=== PATIENT | female | born 1980 | race Caucasian/White ===

== ENCOUNTER 2016-08-26 12:22 | Emergency (ER) | payer BC ==
[~2016-08-26] VITALS: Ht 157.5 cm; Wt 138.9 kg
[~2016-08-26 12:22] MED LIST: ACULAR 0.5100 DROP/5 RIGHT EYE; ANTIVERT25 MG PO; ATARAX,VISTARIL25 MG PO; AZELASTINE137 MCG/0. BOTH NARES; BENZONATATE200 MG PO; CEFDINIR300 MG PO; CIPRODEX OTIC7.5 ML LEFT EAR; DIFLUCAN150 MG PO; EFFEXOR75 MG PO; ERYTHROMYC1 APPLICAT RIGHT EYE; FLEXERIL10 MG PO; HYDROCODON-ACE1 EAC7 PO; INDOCIN25 MG PO; KEFLEX500 MG PO; LASIX20 MG PO; LEVAQUIN500 MG PO; LORTAB 5-325 M1 EACH PO; LOTENSIN10 MG PO; MELOXICAM7.5 MG PO; METFORMIN HCL500 MG PO; MOTRIN400 MG PO; MOTRIN600 MG PO; MOTRIN800 MG PO; NAPROSYN500 MG PO; NOHOMEMEDS; NORCO 7.5/321 TABLET PO; NYQUIL D COLD295 ML PO; PREDNISONE10 MG PO; PREDNISONE20 MG PO; PREVACID30 MG PO; PRISTIQ50 MG; PROAIR HFA8.5 GM IH; PROMETHAZINE HC25 M1 PO; SYNTHROID; SYNTHROID50 MCG PO; ULTRAM50 MG PO; VALIUM5 MG PO; VENTOLIN HFA18 GM IH; ZOFRAN4 MG PO; no home
[2016-08-26 13:27] LABS: HEMATOCRIT 42.5 % (36.0-46.0); MCH 28.7 PG (29.0-34.0); MCHC 34.8 G/DL (30.0-36.0); MCV 82.4 FL (83-99); MEAN PLAT.VOLUME 9.7 uM^3 (9.5-12.4); PLATELET COUNT 351 K/uL (156-360); RBC DIS.WIDTH-CV 13.9 % (11.8-14.6); RBC DIS.WIDTH-SD 40.8 % (39-53); RED BLOOD COUNT 5.16 M/uL (3.80-5.20); WHITE BLOOD COUNT 12.1 K/uL (4.1-10.2)
[2016-08-26 13:38] LABS: CHLORIDE 105 mEq/L (99-109); SODIUM 138 mEq/L (136-147)
[2016-08-26 13:41] LABS: GLUCOSE 93 mg/dL (70-99)
[2016-08-26 13:42] LABS: ANION GAP 11 MEQ/L (2-14)
[2016-08-26 13:43] LABS: TOTAL BILIRUBIN 0.2 mg/dL (0.0-1.0)
[2016-08-26 13:44] LABS: ALKALINE PHOSPHATASE 106 IU/L (3-129); GFR ESTIMATE (CALCULATED) > 59 mL/min/
[2016-08-26 13:45] LABS: UREA NITROGEN (BUN) 8 mg/dL (9-23)
[2016-08-26 13:54] LABS: QUANTITATIVE HCG < 4.0 MIU/ML
[2016-08-26] MEDS ORDERED: VALSARTAN40 MG PO (14:55)
[2016-08-26] MEDS ORDERED: ESCITALOPRAM OX20 MG PO (14:56)
[2016-08-26 15:36] LABS: LIPASE 183 U/L (1.0-51.0)
[2016-08-26 16:02] LABS: ADD MIUA? NO; BILIRUBIN NEGATIVE; BLOOD NEGATIVE; COLOR YELLOW ((YELLOW)); GLUCOSE (STRIP) NEGATIVE; KETONES NEGATIVE; LEUKOCYTES NEGATIVE; NITRITE NEGATIVE; PH, URINE 6.5 (5-8); PROTEIN (STRIP) NEGATIVE; SPECIFIC GRAVITY 1.012 (1.000-1.030); UCUL ADDED? NO; UROBILINOGEN 0.2 MG/DL (0.2-1.0)
[2016-08-26 18:07] VITALS: BP 147/79
[2016-08-26] MEDS ORDERED: ZOFRAN ODT4 MG PO (18:41)
[2016-08-26] MEDS ORDERED: MOTRIN800 MG PO (18:41)
[2016-08-26] MEDS ORDERED: NORCO 7.5/321 TABLET PO (18:41)
[2016-08-26] MEDS ORDERED: MIRALAX255 GM PO (18:42)
== END 2016-08-26 19:18 | disposition home or self-care (01) ==
LOC: EME 12:22
DX: R10.2 Pelvic and perineal pain (principal); R11.0 Nausea; K59.00 Constipation, unspecified; Z53.20 Procedure and treatment not carried out because of patient's decision for unspecified reasons; R10.32 Left lower quadrant pain; I10 Essential (primary) hypertension; F17.200 Nicotine dependence, unspecified, uncomplicated
CPT/HCPCS: 74177; 76857; 80053; 81003; 83690; 84702; 85027; 99281; 99285; J1885; J2405; J3010; J7030

== ENCOUNTER 2016-10-14 20:34 | Emergency (ER) | payer BC ==
[~2016-10-14 20:34] MED LIST changes: +ESCITALOPRAM OX20 MG PO; +MIRALAX255 GM PO; +VALSARTAN40 MG PO; +ZOFRAN ODT4 MG PO
== END 2016-10-14 20:46 | disposition left against medical advice (07) ==
LOC: EME 20:34
DX: H92.01 Otalgia, right ear (principal); Z53.21 Procedure and treatment not carried out due to patient leaving prior to being seen by health care provider

== ENCOUNTER 2018-04-09 21:39 | Emergency (ER) | payer OTHER ==
[~2018-04-09] VITALS: Ht 157.5 cm; Wt 142.4 kg
[2018-04-09 22:56] LABS: HEMATOCRIT 43.2 % (36.0-46.0); HEMOGLOBIN 14.7 G/DL (11.9-15.5); MCH 29.5 PG (29.0-34.0); MCV 86.6 FL (83-99); PLATELET COUNT 311 K/uL (156-360); RBC DIS.WIDTH-CV 13.3 % (11.8-14.6); RBC DIS.WIDTH-SD 41.6 % (39-53); RED BLOOD COUNT 4.99 M/uL (3.80-5.20)
[2018-04-09 23:08] LABS: ALBUMIN 3.6 g/dL (3.2-4.8); CHLORIDE 107 mEq/L (99-109); POTASSIUM 4.2 mEq/L (3.7-5.4); SODIUM 136 mEq/L (136-147)
[2018-04-09 23:10] LABS: GLUCOSE 169 mg/dL (70-99); TOTAL PROTEIN 6.9 g/dL (6.4-8.3)
[2018-04-09 23:12] LABS: TOTAL BILIRUBIN 0.3 mg/dL (0.0-1.0)
[2018-04-09 23:14] LABS: ALKALINE PHOSPHATASE 93 IU/L (3-129); CREATININE 0.8 mg/dL (0.6-1.3); GFR ESTIMATE (CALCULATED) > 59 mL/min/
[2018-04-09 23:15] LABS: UREA NITROGEN (BUN) 10 mg/dL (9-23)
[2018-04-09 23:16] LABS: AST (GOT) 11 IU/L (2-34)
[2018-04-09 23:17] LABS: ALT (GPT) 12 IU/L (3-49); LIPASE 24 U/L (1.0-51.0)
[2018-04-09 23:23] LABS: QUANTITATIVE HCG < 4.0 MIU/ML
[2018-04-10 00:03] LABS: APPEARANCE CLEAR ((CLEAR)); BILIRUBIN NEGATIVE; BLOOD NEGATIVE; COLOR STRAW ((YELLOW)); GLUCOSE (STRIP) NEGATIVE; KETONES NEGATIVE; LEUKOCYTES NEGATIVE; NITRITE NEGATIVE; PROTEIN (STRIP) NEGATIVE; SPECIFIC GRAVITY 1.006 (1.000-1.030); UROBILINOGEN 0.2 MG/DL (0.2-1.0)
[2018-04-10] MEDS ORDERED: VALIUM5 MG PO (01:19)
[2018-04-10] MEDS ORDERED: PROMETHAZINE HC25 M1 PO (01:19)
[2018-04-10 01:32] VITALS: BP 125/92
== END 2018-04-10 01:33 | disposition home or self-care (01) ==
LOC: EME 21:39
PROVIDERS: Nurse Practitioner Family
DX: R42 Dizziness and giddiness (principal); R73.9 Hyperglycemia, unspecified; I10 Essential (primary) hypertension; J45.909 Unspecified asthma, uncomplicated; F32.9 Major depressive disorder, single episode, unspecified; Z88.5 Allergy status to narcotic agent; F17.200 Nicotine dependence, unspecified, uncomplicated; Z88.0 Allergy status to penicillin; Z91.040 Latex allergy status
CPT/HCPCS: 70450; 80053; 81003; 83690; 84702; 85027; 99281; 99284; Q0169